=== PATIENT | female | born 1965 | race Two or more races ===

== ENCOUNTER 2017-08-13 02:00 | Emergency (ER) | payer SELFPAY ==
[~2017-08-13] VITALS: Ht 162.6 cm; Wt 61.0 kg
[2017-08-13] MEDS ORDERED: PHENOBARBITAL 100MG TABLET PO ONE (02:30)
[2017-08-13 02:36] VITALS: BP 120/84
[2017-08-13] MEDS ORDERED: ONDANSETRON HCL 4MG/2ML VIAL IV ONE (03:15)
== END 2017-08-13 04:21 | disposition home or self-care (01) ==
LOC: ER 02:00
DX: R56.9 Unspecified convulsions (principal); Z91.14 Patient's other noncompliance with medication regimen
CPT/HCPCS: 96374; 99284; J2405

== ENCOUNTER 2017-12-08 17:15 | Emergency (ER) | payer MEDICAID ==
[~2017-12-08] VITALS: Ht 157.5 cm; Wt 69.0 kg
[2017-12-08 17:25] VITALS: BP 126/81
[2017-12-08 19:13] LABS: CLARITY URINE CLEAR (CLEAR); COLOR URINE YELLOW (YELLOW); KETONES URINE NEGATIVE (NEGATIVE); LEUKOCYTE ESTERASE URINE 2+ (NEGATIVE); NITRITE URINE NEGATIVE (NEGATIVE); OCCULT BLOOD URINE NEGATIVE (NEGATIVE); PROTEIN URINE NEGATIVE (NEGATIVE); SPECIFIC GRAVITY URINE 1.005 (1.005-1.030); UROBILINOGEN URINE 0.2 E.U./dL (0.2-1.0)
== END 2017-12-08 20:32 | disposition left against medical advice (07) ==
LOC: ER 18:58
DX: R19.7 Diarrhea, unspecified (principal); R56.9 Unspecified convulsions; R50.9 Fever, unspecified; R51 Headache
CPT/HCPCS: 81003; 81025; 99283